=== PATIENT | male | born 1950 | race Caucasian/White ===

== ENCOUNTER 2022-11-23 01:47 | Emergency (ER) | payer MEDICARE, BC ==
[2022-11-23] MEDS ORDERED: HYDROmorphone 1 MG/ML Syringe ONE (03:49)
[2022-11-23] MEDS ORDERED: HYDROmorphone 1 MG/ML Syringe IM ONE (03:50)
== END 2022-11-23 05:00 | disposition home or self-care (01) ==
LOC: JP.ED 01:47
DX: R07.89 Other chest pain (principal)
CPT/HCPCS: 96372; 99284; J1170